=== PATIENT | male | born 1995 | race African-American/Black ===

== ENCOUNTER 2021-09-10 11:05 | Emergency (ER) | payer OTHER, MEDICAID ==
[~2021-09-10] VITALS: Ht 172.7 cm; Wt 73.0 kg
[2021-09-10 11:10] VITALS: BP 114/66
--- NOTE | 2021-09-10 11:21 | NUR ---
Patient wheelchair assisted to wait in lobby for next available bed.
--- NOTE | 2021-09-10 12:25 | NUR ---
WC assisted to bed 11.
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
[2021-09-10] MEDS ORDERED: CYCLOBENZAPRINE 10 MG TAB PO ONE (13:25)
[2021-09-10] MEDS ORDERED: IBUPROFEN 800 MG TAB PO ONE (13:25)
[2021-09-10] MEDS ORDERED: ACETAMINOPHEN EXTRA STRENGTH 500 MG TAB PO ONE (13:25)
[2021-09-10] MEDS ORDERED: LIDOCAINE 5% 1 EA PATCH TP ONE (13:30)
--- NOTE | 2021-09-10 14:04 | NUR ---
Pt states pain remains 10/[address] Rodriguez made aware
[2021-09-10] MEDS ORDERED: oxyCODONE/APAP 5/325 MG 1 TAB TAB ONE (14:05)
[2021-09-10] MEDS ORDERED: oxyCODONE/APAP 5/325 MG 1 TAB TAB PO ONE (14:05)
[2021-09-10] MEDS ORDERED: CYCL-711 PO (14:11)
[2021-09-10] MEDS ORDERED: ACET-10509 PO (14:11)
[2021-09-10] MEDS ORDERED: IBUP-2213 PO (14:11)
[2021-09-10] MEDS ORDERED: LID5T TP (14:12)
--- NOTE | 2021-09-10 14:39 | NUR ---
Pt states + relief to pain 10/14. All pt needs met.
[2021-09-10 14:55] VITALS: BP 116/71
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
[2021-09-11] MEDS ORDERED: LIDOCAINE 5% 1 EA PATCH TP SCH (09:00)
== END 2021-09-10 14:55 | disposition home or self-care (01) ==
LOC: MED 11:05
DX: M54.59 Other low back pain (principal); M25.511 Pain in right shoulder; V98.8XXA Other specified transport accidents, initial encounter; Y92.89 Other specified places as the place of occurrence of the external cause; Y93.89 Activity, other specified; Y99.8 Other external cause status
CPT/HCPCS: 72110; 73030; 99284

== ENCOUNTER 2021-12-16 21:20 | Emergency (ER) | payer MEDICAID ==
[~2021-12-16] VITALS: Ht 172.7 cm; Wt 72.6 kg
[~2021-12-16 21:20] MED LIST: ACET-10509 PO; CYCL-711 PO; IBUP-2213 PO; LID5T TP
[2021-12-16 21:47] VITALS: BP 136/82
--- NOTE | 2021-12-16 21:52 | NUR ---
PT TAKEN TO LOBBY
--- NOTE | 2021-12-16 22:30 | NUR ---
ERMD AT BEDSIDE.
[2021-12-16] MEDS ORDERED: ACETAMINOPHEN EXTRA STRENGTH 500 MG TAB PO ONE (22:55)
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
--- NOTE | 2021-12-16 23:09 | NUR ---
PER ERMD NOT TO ADMIN TYLENOL TO PT, ONLY [facility]. CANCEL TYLENOL.
[2021-12-16] MEDS: HYDROcodone/APAP 5/325 MG 1 TAB TAB PO ONE (23:16)
--- NOTE | 2021-12-16 23:49 | NUR ---
PAIN LEVEL 8/10. PT STATES MEDICATION TOOK A LITTLE BIT OF THE PAIN AWAY. PT IN BED SIDERAILS UP
[2021-12-17] MEDS ORDERED: KETO10TA2 PO (00:02)
[2021-12-17 00:24] VITALS: BP 114/17
--- NOTE | 2021-12-17 00:24 | NUR ---
Patient discharged with v/s stable. Patient alert, oriented and verbalized understanding of instructions. Ambulatory with steady gait. All questions addressed prior to discharge. ID band removed. Patient advised to follow up with PMD. Rx of KETOROLAC given.
--- NOTE | 2021-12-17 00:24 | NUR ---
The patient's care was reviewed and supervised by Josefina Bai RN.
== END 2021-12-17 00:24 | disposition home or self-care (01) ==
LOC: MED 21:20
DX: M25.551 Pain in right hip (principal); M54.50 Low back pain, unspecified; Z79.899 Other long term (current) drug therapy
CPT/HCPCS: 73502; 99283